=== PATIENT | female | born 1940 | race Caucasian/White ===

== ENCOUNTER 2020-01-17 13:08 | Observation (INO) ==
[2020-01-17] MEDS ORDERED: SODIUM CHLORIDE 0.9% 1,000 ML IV STA (13:33)
[2020-01-17 14:10] LABS: Basophils % 0.3 % (0.0-0.8); Hematocrit 44.6 VOL% (35.7-47.0); Immature Granulocytes % 0.5 %; Immature Granulocytes Absolute 0.02 #; Lymphocytes # 0.7 10*3/uL (1.4-4.0); Lymphocytes % 17.8 % (21.3-54.2); Mean Corpuscular HGB Conc 31.4 GM/DL (32-36); Mean Corpuscular Volume 95.5 FL (87-102); Monocytes % 11.2 % (1.7-12.7); Neutrophils % 70.2 % (38.7-73.9); Platelet Count 106 T/CUMM (130-400); Red Blood Count 4.67 MC/CUMM (3.8-5.5); Red Cell Distribution Width 13.9 % (9.3-17.3); White Blood Count 3.9 T/CUMM (4-12)
[2020-01-17 14:20] LABS: PT Patient Result 10.4 SECS (9.8-11.9)
[2020-01-17 14:32] LABS: Albumin 3.2 G/DL (3.4-5.0); Bilirubin,Total 0.5 MG/DL (0.2-1.0); Calcium 7.9 MG/DL (8.5-10.1); Total Protein 6.5 G/DL (6.4-8.3)
[2020-01-17 14:49] LABS: Apearance,Urine Slightly Hazy (Clear); Bacteria,Urine Few /HPF (Few); Bilirubin,Urine Negative (Negative); Blood, Urine Moderate mg/dL (Negative); Glucose,Urine (UA) Negative (Negative); Ketones,Urine Negative (Negative); Mucus,Urine Occasional /LPF (Occasional); Nitrite,Urine Negative (Negative); Protein,Urine Negative; RBC,Urine 8 /HPF (0-4); Squamous Epithelial Cell,Urine Occasional /HPF (0-10); Urine Color Yellow (Yellow); Urine Specific Gravity 1.004 (1.001-1.035); Urine Urobilinogen < 2.0 EU/DL (0.2-1.0); WBC,Urine 3 /HPF (0-6)
[2020-01-17] MEDS ORDERED: diphenhydrAMINE CAP 25 MG CAPSULE PO PRN (17:29)
[2020-01-17] MEDS ORDERED: SIMETHICONE CHEW 125 MG TABLET PO PRN (17:29)
[2020-01-17] MEDS ORDERED: CALCIUM CARBONATE CHEW 500 MG TABLET PO PRN (17:29)
[2020-01-17] MEDS ORDERED: ALBUTEROL/IPRATROPIUM 3 ML NEB RESP TX PRN (17:29)
[2020-01-17] MEDS ORDERED: ZALEPLON 5 MG CAPSULE PO PRN (17:29)
[2020-01-17] MEDS ORDERED: NICOTINE 21 MG/24 HR PATCH TRANSDERM PRN (17:29)
[2020-01-17] MEDS ORDERED: ACETAMINOPHEN 325 MG TABLET PO PRN (17:29)
[2020-01-17] MEDS ORDERED: DEXTROSE 50% 25 GM/50 ML VIAL IV PRN (17:29)
[2020-01-17] MEDS ORDERED: GLUCAGON 1 MG VIAL IM PRN (17:29)
[2020-01-17] MEDS ORDERED: ONDANSETRON 4 MG/2 ML VIAL IV PRN (17:29)
[2020-01-17] MEDS ORDERED: BISACODYL 5 MG TABLET PO PRN (17:29)
[2020-01-17] MEDS ORDERED: ALUMINUM/MAGNES/SIMETH MAX STR 30 ML UDCUP PO PRN (17:29)
[2020-01-17] MEDS ORDERED: DOCUSATE SODIUM 100 MG CAPSULE PO PRN (17:29)
[2020-01-17] MEDS ORDERED: LACTULOSE 20 GM/30 ML UDCUP PO PRN (17:29)
[2020-01-17] MEDS ORDERED: hydrALAZINE 20 MG/1 ML VIAL IV PRN (17:29)
[2020-01-17] MEDS ORDERED: guaiFENesin/DM ER 600-30 MG TABLET PO PRN (17:29)
[2020-01-17] MEDS: BUDESONIDE/FORMOTEROL 80-4.5 INHALER 6.9 GM INH SCH (21:59)
[2020-01-17] MEDS: AMPICILLIN/SULBACTAM 1,500 MG in SODIUM CHLORIDE 0.9% 100 ML IV SCH (21:59)
[2020-01-17] MEDS: MONTELUKAST 10 MG TABLET PO SCH (21:59)
[2020-01-17] MEDS: DONEPEZIL 5 MG TABLET PO SCH (21:59)
[2020-01-18 01:09] LABS: Hematocrit 47.8 VOL% (35.7-47.0); Immature Granulocytes % 0.2 %; Immature Granulocytes Absolute 0.01 #; Lymphocytes # 1.2 10*3/uL (1.4-4.0); Lymphocytes % 27.6 % (21.3-54.2); Mean Corpuscular HGB Conc 31.4 GM/DL (32-36); Mean Corpuscular Volume 96.2 FL (87-102); Mean Platelet Volume 11.1 FL (9.6-12.0); Monocytes % 7.7 % (1.7-12.7); Neutrophils % 64.5 % (38.7-73.9); Platelet Count 109 T/CUMM (130-400); Red Blood Count 4.97 MC/CUMM (3.8-5.5); Red Cell Distribution Width 13.7 % (9.3-17.3); White Blood Count 4.2 T/CUMM (4-12)
[2020-01-18 01:34] LABS: Ferritin 204.8 ng/ml (8-252)
[2020-01-18 01:43] LABS: Albumin 3.4 G/DL (3.4-5.0); Bilirubin,Total 0.5 MG/DL (0.2-1.0); Calcium 8.1 MG/DL (8.5-10.1); Risk Ratio 2.98; Thyroid Stimulating Hormone 0.544 uIU/ml (0.358-3.74); Total Protein 7.4 G/DL (6.4-8.3); VLDL CHOLESTEROL 14.8 MG/DL
[2020-01-18] MEDS: AMPICILLIN/SULBACTAM 1,500 MG in SODIUM CHLORIDE 0.9% 100 ML IV SCH (02:40)
[2020-01-18] MEDS ORDERED: PANTOPRAZOLE 40 MG TABLET PO SCH (09:00)
[2020-01-18] MEDS: CITALOPRAM 20 MG TABLET PO SCH (09:33)
[2020-01-18] MEDS: METOPROLOL TARTRATE 25 MG TABLET PO SCH (09:33)
[2020-01-18] MEDS: ZINC GLUCONATE 50 MG TABLET PO SCH (09:33)
[2020-01-18] MEDS: ENOXAPARIN 40 MG/0.4 ML SYRINGE SUBCUT SCH (09:55)
[2020-01-18] MEDS ORDERED: LORazepam 2 MG/1 ML VIAL IV PRN (09:58)
[2020-01-18] MEDS ORDERED: diphenhydrAMINE 50 MG/1 ML VIAL IV PRN (09:59)
[2020-01-18] MEDS ORDERED: ENOXAPARIN 60 MG/0.6 ML SYRINGE SUBCUT SCH (10:30)
[2020-01-18] MEDS ORDERED: LORazepam 2 MG/1 ML VIAL IV SCH (10:30)
[2020-01-18] MEDS ORDERED: LORazepam 2 MG/1 ML VIAL IV ONE (11:00)
[2020-01-18] MEDS: BUDESONIDE/FORMOTEROL 80-4.5 INHALER 6.9 GM INH SCH ×2 (12:23→23:57)
[2020-01-18] MEDS ORDERED: HALOPERIDOL 5 MG/ML AMP IV ONE (15:13)
[2020-01-18] MEDS: busPIRone 5 MG TABLET PO SCH ×2 (15:20→20:54)
[2020-01-18] MEDS: methylPREDNISolone SOD SUC 40 MG/1 ML VIAL IV SCH (17:29)
[2020-01-18] MEDS: MONTELUKAST 10 MG TABLET PO SCH (20:53)
[2020-01-18] MEDS: DONEPEZIL 5 MG TABLET PO SCH (20:54)
[2020-01-19 06:24] LABS: Hematocrit 42.2 VOL% (35.7-47.0); Hemoglobin 13.5 GM/DL (12.0-16.0); Immature Granulocytes % 0.6 %; Immature Granulocytes Absolute 0.02 #; Lymphocytes # 0.5 10*3/uL (1.4-4.0); Lymphocytes % 16.2 % (21.3-54.2); Mean Corpuscular Volume 94.2 FL (87-102); Mean Platelet Volume 11.5 FL (9.6-12.0); Monocytes % 3.2 % (1.7-12.7); Platelet Count 100 T/CUMM (130-400); Red Blood Count 4.48 MC/CUMM (3.8-5.5); Red Cell Distribution Width 13.5 % (9.3-17.3); White Blood Count 3.2 T/CUMM (4-12)
[2020-01-19 06:47] LABS: Alanine Aminotransferase 13 U/L (13-56); Albumin 2.8 G/DL (3.4-5.0); Alkaline Phosphatase 65 U/L (45-117); Aspartate Amino Transferase 12 U/L (0-37); Bilirubin,Total < 0.39 MG/DL (0.2-1.0); Blood Urea Nitrogen 11 MG/DL (7-18); Calcium 7.9 MG/DL (8.5-10.1); Estimated Glom Filtration Rate 93 ML/MIN; Glucose 136 MG/DL (74-106); Osmolality,Calculated 275.7 MOS/KG (273-304); Total Protein 6.6 G/DL (6.4-8.3)
[2020-01-19 06:51] LABS: Ferritin 150.2 ng/ml (8-252); Hypochromasia 1+; Platelet Estimate Decreased
[2020-01-19] MEDS: ZINC GLUCONATE 50 MG TABLET PO SCH (08:37)
[2020-01-19] MEDS: CITALOPRAM 20 MG TABLET PO SCH (08:37)
[2020-01-19] MEDS: busPIRone 5 MG TABLET PO SCH (08:37)
[2020-01-19] MEDS: methylPREDNISolone SOD SUC 40 MG/1 ML VIAL IV SCH ×2 (08:37)
[2020-01-19] MEDS: ENOXAPARIN 40 MG/0.4 ML SYRINGE SUBCUT SCH (08:37)
[2020-01-19] MEDS: BUDESONIDE/FORMOTEROL 80-4.5 INHALER 6.9 GM INH SCH (08:37)
[2020-01-19] MEDS: METOPROLOL TARTRATE 25 MG TABLET PO SCH (08:37)
[2020-01-19 12:27] VITALS: BP 115/50
== END 2020-01-19 13:25 | disposition home or self-care (01) ==
LOC: EDUNIT# → N.EDINP 13:08 → N.ED 13:08 → N.TELES 18:10 → N.EDINP 22:13 → N.2E 23:49
PROVIDERS: ADMIT Hospitalist; ATTEND Hospitalist

== ENCOUNTER 2020-01-20 19:21 | Observation (INO) ==
[2020-01-20] MEDS ORDERED: DIPH/TET/ACEL PERT BOOSTER VACCINE 0.5 ML VIAL IM ONE (19:59)
[2020-01-20] MEDS ORDERED: ceFAZolin 1,000 MG VIAL IM ONE (19:59)
[2020-01-20] MEDS ORDERED: ACETAMINOPHEN 500 MG TABLET PO STA (20:28)
[2020-01-20] MEDS ORDERED: methylPREDNISolone SOD SUC 125 MG/2 ML VIAL IV STA (22:02)
[2020-01-20 22:41] LABS: Basophils % 0.2 % (0.0-0.8); Hematocrit 39.4 VOL% (35.7-47.0); Hemoglobin 12.3 GM/DL (12.0-16.0); Immature Granulocytes % 0.4 %; Immature Granulocytes Absolute 0.02 #; Mean Corpuscular HGB Conc 31.2 GM/DL (32-36); Mean Corpuscular Volume 95.2 FL (87-102); Mean Platelet Volume 11.2 FL (9.6-12.0); Monocytes % 7.9 % (1.7-12.7); Neutrophils % 71.5 % (38.7-73.9); Platelet Count 107 T/CUMM (130-400); Red Blood Count 4.14 MC/CUMM (3.8-5.5); Red Cell Distribution Width 13.6 % (9.3-17.3); White Blood Count 4.8 T/CUMM (4-12)
[2020-01-20 22:52] LABS: PT Patient Result 10.8 SECS (9.8-11.9)
[2020-01-20 23:04] LABS: Alanine Aminotransferase 18 U/L (13-56); Albumin 2.6 G/DL (3.4-5.0); Alkaline Phosphatase 56 U/L (45-117); Aspartate Amino Transferase 19 U/L (0-37); Blood Urea Nitrogen 12 MG/DL (7-18); Calcium 7.6 MG/DL (8.5-10.1); Estimated Glom Filtration Rate 64 ML/MIN; Ferritin 173.3 ng/ml (8-252); Glucose 83 MG/DL (74-106); Osmolality,Calculated 264.4 MOS/KG (273-304); Total Protein 6.1 G/DL (6.4-8.3)
[2020-01-21] MEDS ORDERED: diphenhydrAMINE CAP 25 MG CAPSULE PO PRN (00:10)
[2020-01-21] MEDS ORDERED: hydrALAZINE 20 MG/1 ML VIAL IV PRN (00:10)
[2020-01-21] MEDS ORDERED: GLUCAGON 1 MG VIAL IM PRN (00:10)
[2020-01-21] MEDS ORDERED: ONDANSETRON 4 MG/2 ML VIAL IV PRN (00:10)
[2020-01-21] MEDS ORDERED: guaiFENesin/DM ER 600-30 MG TABLET PO PRN (00:10)
[2020-01-21] MEDS ORDERED: NICOTINE 21 MG/24 HR PATCH TRANSDERM PRN (00:10)
[2020-01-21] MEDS ORDERED: DEXTROSE 50% 25 GM/50 ML VIAL IV PRN (00:10)
[2020-01-21] MEDS ORDERED: ACETAMINOPHEN 500 MG TABLET PO PRN (00:15)
[2020-01-21] MEDS ORDERED: POTASSIUM CHLORIDE 20 MEQ TABLET PO STA (00:15)
[2020-01-21] MEDS: SODIUM CHLORIDE 0.9% 1,000 ML IV SCH ×4 (05:39→23:36)
[2020-01-21 07:32] LABS: Calcium 8.5 MG/DL (8.5-10.1); Osmolality,Calculated 278.7 MOS/KG (273-304)
[2020-01-21] MEDS ORDERED: methylPREDNISolone SOD SUC 40 MG/1 ML VIAL IV SCH (09:00)
[2020-01-22] MEDS: SODIUM CHLORIDE 0.9% 1,000 ML IV SCH (06:53)
[2020-01-22] MEDS ORDERED: busPIRone 5 MG TABLET PO SCH (09:00)
[2020-01-22] MEDS ORDERED: METOPROLOL TARTRATE 25 MG TABLET PO SCH (09:00)
[2020-01-22] MEDS ORDERED: BUDESONIDE/FORMOTEROL 80-4.5 INHALER 6.9 GM INH SCH (09:00)
[2020-01-22 11:41] VITALS: BP 114/69
[2020-01-22] MEDS ORDERED: MONTELUKAST 10 MG TABLET PO SCH (21:00)
== END 2020-01-22 12:28 | disposition home or self-care (01) ==
LOC: EDBD → EDUNIT# → N.EDINP 19:21 → N.ED 19:21 → N.2E 01-21 03:50
PROVIDERS: ADMIT Hospitalist; ATTEND Hospitalist